=== PATIENT | male | born 1985 | race Caucasian/White ===

== ENCOUNTER 2016-08-20 07:19 | Day surgery (SDC) | payer OTHER ==
[~2016-08-20 07:19] MED LIST: ceFAZolin 2 GM/50 ML 50 ML IV ONE
[2016-08-20] MEDS ORDERED: LACTATED RINGERS 1,000 ML IV ONE (07:52)
[2016-08-20] MEDS ORDERED: BUPIVACAINE 0.25% PF 30 ML VIAL SUBQ ONE (08:28)
[2016-08-20] MEDS ORDERED: LIDOCAINE 1% 50 ML MDV SUBQ ONE (08:28)
[2016-08-20] MEDS ORDERED: KETOROLAC 15 MG/ML VIAL ONE (08:49)
[2016-08-20] MEDS ORDERED: LIDOCAINE-MPF 2% 5 ML VIAL IM ONE (09:00)
[2016-08-20] MEDS ORDERED: PROPOFOL 200 MG/20 ML VIAL IVP ONE (09:00)
[2016-08-20] MEDS ORDERED: fentaNYL 100 MCG/2 ML VIAL IVP ONE (09:00)
[2016-08-20] MEDS ORDERED: MIDAZOLAM 2 MG/2 ML VIAL IVP ONE (09:00)
[2016-08-20] MEDS ORDERED: HYDROcod/ACETAM 5/325 MG TABLET ONE (09:10)
[2016-08-20 09:43] VITALS: BP 147/89
--- NOTE | 2016-08-20 11:06 | OPERATIVE REPORT ---
DATE OF SURGERY: 08/20/2016 00:00:00 PREOPERATIVE DIAGNOSIS: Right foot interdigital corn of the 4th toe and small bony spur. POSTOPERATIVE DIAGNOSIS: Right foot interdigital corn of the 4th toe and small bony spur. NAME OF PROCEDURE: Right 4th toe corn excision and debridement of condyle by condylectomy. SURGEON: Linda Melvin MD ANESTHESIA: Local MAC. INDICATIONS FOR SURGERY: The patient is a 31-year-old male who has had a painful right 4th toe with a prominent growth on the lateral border of the toe impinging on the 5th toe and causing chronic pain. The patient has had treatment of freezing of this area and it has been ineffective with further grow th of the toe lesion and pain. DESCRIPTION OF OPERATIVE PROCEDURE: The patient was taken to the operating room, was given a MAC anes thetic. His foot was sterilely prepped and draped in standard fashion. After surgical time-out, the patient underwent a toe block utilizing 1% lidocaine and 0.25% Marcaine, after which an elliptical excision of the soft tissue lesion was performed, which then exposed the l ateral aspect of the proximal phalanx for condylectomy, where there was found to be a bony prominence in the area removed with a rongeur. This involved very little stripping of the capsule and did not d estabilize that PIP joint. The area was flushed and irrigated and skin closed with interrupted 4-0 nylon. Sterile dressing was a pplied and a postop shoe. The patient was taken to the recovery room in stable condition. ESTIMATED BLOOD LOSS: Minimal. COMPLICATIONS: None. SPONGE AND NEEDLE COUNTS: Correct. JOB #: [id number] EXT JOB #:[id number]
== END 2016-08-20 07:20 | disposition home or self-care (01) ==
LOC: SDS 07:19
PROVIDERS: ATTEND Orthopaedic Surgery
PROC: 0QBQ0ZZ Excision of Right Toe Phalanx, Open Approach (ICD-10-PCS; 2016-08-20)
PROC: 0HBMXZZ Excision of Right Foot Skin, External Approach (ICD-10-PCS; principal; 2016-08-20 08:45)
DX: L84 Corns and callosities (principal); M77.8 Other enthesopathies, not elsewhere classified; G47.30 Sleep apnea, unspecified; F41.9 Anxiety disorder, unspecified; Z87.891 Personal history of nicotine dependence
CPT/HCPCS: 11420; 28124; A9270; J0690; J7120

== ENCOUNTER 2017-05-21 14:43 | Emergency (ER) | payer OTHER ==
[2017-05-21 14:58] VITALS: BP 139/100
--- NOTE | 2017-05-21 15:36 | XRAY Report ---
EXAM: RIGHT KNEE RADIOGRAPHY EXAM DATE: 05/21/2017 03:26 PM. CLINICAL HISTORY: Pain. COMPARISON: None. TECHNIQUE: 4 views. FINDINGS: Bones: Normal. No fractures or bone lesions. Joints: Normal. No effusion. No subluxations. Soft Tissues: Normal. No soft tissue swelling. IMPRESSION: Normal knee radiography. [facility] Referring Provider Line: [phone] SITE ID: [id number]
--- NOTE | 2017-05-21 17:56 | ED Physician Documentation ---
PD HPI LOWER EXT INJURY - Stated complaint Stated Complaint: R KNEE PX - Chief complaint Chief Complaint: Ext Problem - History obtained from History obtained from: Patient - History of Present Illness PD HPI LOW EXT INJURY LOCATION: Other (1 week of medial right knee pain without injury. He has had this before but never for as long. He has tried numerous [id number]-[id number] remedies without relief. No swelling or fevers.) Review of Systems Constitutional: denies: Fever, Chills Nose: denies: Rhinorrhea / runny nose, Congestion GI: denies: Abdominal Pain, Nausea, Vomiting PD PAST MEDICAL HISTORY - Past Medical History Cardiovascular: None Respiratory: Sleep apnea, CPAP use Endocrine/Autoimmune: None GI: None : None HEENT: None Psych: None Musculoskeletal: None Derm: None - Present Medications Home Medications: Ambulatory Orders Medication Instructions Recorded Confirmed HYDROcod/ACETAM 5/325 [Guffey 5/325] 1 - 2 ea PO Q6H PRN #10 tablet 05/21/17 Meloxicam [Mobic] 7.5 mg PO BIDWM PRN #15 tablet 05/21/17 - Allergies Allergies/Adverse Reactions: Allergies Allergy/AdvReac Type Severity Reaction Status Date / Time No Known Drug Allergies Allergy Verified 05/21/17 14:58 PD ED PE NORMAL - Vitals Vital signs reviewed: Yes - General General: Alert and oriented X 3, No acute distress - Extremities Extremities: Other (Right knee is focally tender over the medial joint line and pain but no laxity with MCL testing. Negative grind testing and other ligament testing.) - Neuro Neuro: Alert and oriented X 3, Normal speech Results - Vitals Vitals: Vital Signs - 24 hr 05/21/17 14:53 Temperature 37.1 C Heart Rate 106 H Respiratory 18 Rate Blood Pressure 139/100 H O2 Saturation 97 Oxygen O2 Source Room air - Rads (name of study) 4v R knee Radiology: EMP read contemporaneously (normal) Departure - Departure Disposition: 01 Home, Self Care Clinical Impression: Knee MCL sprain Qualifiers: Encounter type: initial encounter Laterality: right Qualified Code(s): S83.411A - Sprain of medial collateral ligament of right knee, initial encounter Condition: Good Record reviewed to determine appropriate education?: Yes Instructions: ED Sprain Knee Prescriptions: HYDROcod/ACETAM 5/325 [Guffey 5/325] 1 - 2 ea PO Q6H PRN #10 tablet PRN Reason: Pain Meloxicam [Mobic] 7.5 mg PO BIDWM PRN #15 tablet PRN Reason: Pain Comments: Call your doctor to arrange a follow-up appointment, make the next available appointment. In the interim, return anytime if worse or if new symptoms develop. Your blood pressure was elevated today on check into the emergency department. This does not mean that you have hypertension, it is a common phenomenon to come to the emergency department and have elevated blood pressure. I recommend that you see your primary care physician within the week to have it rechecked when you are feeling better.
== END 2017-05-21 18:06 | disposition home or self-care (01) ==
LOC: ED 14:43
DX: S83.411A Sprain of medial collateral ligament of right knee, initial encounter (principal); X58.XXXA Exposure to other specified factors, initial encounter; R03.0 Elevated blood-pressure reading, without diagnosis of hypertension
CPT/HCPCS: 99283

== ENCOUNTER 2018-08-29 15:44 | Emergency (ER) | payer OTHER ==
[2018-08-29 15:50] VITALS: BP 149/94
--- NOTE | 2018-08-29 16:00 | ED Physician Documentation ---
PD HPI UPPER EXT INJURY - Stated complaint Stated Complaint: R KNEE INJ - Chief complaint Chief Complaint: Ext Problem - History obtained from History obtained from: Patient - History of Present Illness Location: Right (33-year-old gentleman, active duty in the [employer]. He fell directly on his knee while playing football 6 months ago and has had persistent and sometimes worsening anteromedial knee pain since then with swelling. The worst thing is kneeling on the knees. There is no difficulty walking or going up or down stairs.) Review of Systems Constitutional: reports: Reviewed and negative Cardiac: reports: Reviewed and negative Respiratory: reports: Reviewed and negative PD PAST MEDICAL HISTORY - Past Medical History Cardiovascular: None Respiratory: Sleep apnea, CPAP use Endocrine/Autoimmune: None GI: None : None HEENT: None Psych: None Musculoskeletal: None Derm: None - Present Medications Home Medications: Ambulatory Orders Medication Instructions Recorded Confirmed Ibuprofen [Motrin] 800 mg PO Q8H PRN #30 tablet 08/29/18 - Allergies Allergies/Adverse Reactions: Allergies Allergy/AdvReac Type Severity Reaction Status Date / Time No Known Drug Allergies Allergy Verified 08/29/18 15:50 - Social History Does the pt smoke?: No Smoking Status: Never smoker PD ED PE NORMAL - Vitals Vital signs reviewed: Yes - General General: Alert and oriented X 3, No acute distress - Extremities Extremities: Other (Right knee has a small effusion. There is no tenderness, no limited range of motion. Ligamentous testing is tight painless and intact and negative grind testing.) - Neuro Neuro: Alert and oriented X 3, Normal speech Results - Vitals Vitals: Vital Signs - 24 hr 08/29/18 15:49 Temperature 36.7 C Heart Rate 100 Respiratory 20 Rate Blood Pressure 149/94 H O2 Saturation 100 Oxygen O2 Source Room air - Rads (name of study) R knee XR Radiology: EMP read contemporaneously (neg) Departure - Departure Disposition: 01 Home, Self Care Clinical Impression: Internal derangement of right knee Condition: Good Record reviewed to determine appropriate education?: Yes Instructions: ED Effusion Knee Prescriptions: Ibuprofen [Motrin] 800 mg PO Q8H PRN #30 tablet PRN Reason: PAIN &/OR FEVER Comments: [place]. Take the copy of the x-rays with you. Your blood pressure was elevated today on check into the emergency department. This does not mean that you have hypertension, it is a common phenomenon to come to the emergency department and have elevated blood pressure. I recommend that you see your primary care physician within the week to have it rechecked when you are feeling better. Discharge Date/Time: 08/29/18 17:41
--- NOTE | 2018-08-29 16:52 | XRAY Report ---
Reason: knee inj Procedure Date: 08/29/2018 Accession Number: [id number] / [id number] Procedure: XR - Knee 4 View RT CPT Code: FULL RESULT: EXAM: RIGHT KNEE RADIOGRAPHY EXAM DATE: 08/29/2018 04:20 PM. CLINICAL HISTORY: Knee inj. COMPARISON: KNEE 4 VIEW RT 05/21/2017 3:10 PM. TECHNIQUE: 4 views. FINDINGS: Bones: No acute fracture or dislocation. Joints: No visible joint effusion. Soft Tissues: Prominent musculature versus fluid in the anterior thigh on the lateral view. Clinical correlation recommended. There is edema and Hoffa's fat pad, which is nonspecific. IMPRESSION: No acute fracture or dislocation visualized. Soft tissue findings as described above. [facility]
== END 2018-08-29 17:41 | disposition home or self-care (01) ==
LOC: ED 15:44
DX: M23.91 Unspecified internal derangement of right knee (principal); M25.461 Effusion, right knee; R03.0 Elevated blood-pressure reading, without diagnosis of hypertension
CPT/HCPCS: 99283